=== PATIENT | male | born 1950 | race Caucasian/White ===

== ENCOUNTER 2017-07-26 14:20 | Inpatient (IN) | payer OTHER ==
--- NOTE | 2017-07-26 14:47 | PDOC ---
History of Present Illness <Tarun Duggan - Last Filed: 07/26/17 17:32> - General History Source: Patient Exam Limitations: No Limitations - History of Present Illness Initial Comments: 07/26/17 15:22 The patient is a 67 year old male, with a significant past medical history of hypertension, hyperlipidemia, and BPH, who presents to the ED sent by his PCP Dr. Carrero for evaluation of 5 day history of fever. Patient reports he presented to his PCP 5 days ago during which he had a blood and urine culture done. Patient states Dr. Kimball reported he found a UTI and infection in the blood. Patient reports associated dysuria, but denies any hematuria, frequency, or urgency. Per records the patient presents with, patients blood was positive for gram negative rods and his urine had positive leukocyte esterase and nitrates. Patient reports he was placed on antibiotics and flomax. The patient denies any abdominal pain, nausea, vomiting, diarrhea, or constipation. He denies any chills, cough, headache, or dizziness. He denies any chest pain, shortness of breath, diaphoresis, or palpitations. He denies any recent travel or sick contacts. Allergies: Penicillins Past Surgical History: None reported Social History: Non smoker. No ETOH or drug use. PCP: Dr. Kimball <Latricia Sanchez - Last Filed: 07/26/17 19:03> - General Chief Complaint: SIRS, Suspected/Possible Stated Complaint: PCP: SENT Time Seen by Provider: 07/26/17 14:39 Past History - Past Medical History HTN: Yes Other medical history: bph - Psycho/Social/Smoking Cessation Hx Anxiety: No Suicidal Ideation: No Smoking History: Never smoked Have you smoked in the past 12 months: No Information on smoking cessation initiated: No Hx Alcohol Use: No Drug/Substance Use Hx: No Substance Use Type: None <Tarun Duggan - Last Filed: 07/26/17 17:32> <Latricia Sanchez - Last Filed: 07/26/17 19:03> - Past Medical History Allergies/Adverse Reactions: Allergies Allergy/AdvReac Type Severity Reaction Status Date / Time Penicillins Allergy Verified 07/26/17 14:23 Home Medications: Ambulatory Orders Atenolol [Tenormin -] 100 mg PO DAILY 07/26/17 Levofloxacin [Levaquin] 500 mg PO DAILY 07/26/17 Tamsulosin HCl [Flomax] 0.4 mg PO DAILY 07/26/17 Review of Systems - Review of Systems Able to Perform ROS?: Yes Comments:: 07/26/17 15:22 GENERAL/CONSTITUTIONAL: Yes: +fever. No chills. No weakness. HEAD, EYES, EARS, NOSE AND THROAT: No change in vision. No ear pain or discharge. No sore throat. CARDIOVASCULAR: No chest pain or shortness of breath. RESPIRATORY: No cough, wheezing, or hemoptysis. GASTROINTESTINAL: No nausea, vomiting, diarrhea or constipation. GENITOURINARY: Yes: +dysuria. No frequency, or change in urination. MUSCULOSKELETAL: No joint or muscle swelling or pain. No neck or back pain. SKIN: No rash NEUROLOGIC: No headache, vertigo, loss of consciousness, or change in strength/ sensation. ENDOCRINE: No increased thirst. No abnormal weight change. HEMATOLOGIC/LYMPHATIC: No anemia, easy bleeding, or history of blood clots. ALLERGIC/IMMUNOLOGIC: No hives or skin allergy. <Latricia Sanchez - Last Filed: 07/26/17 19:03> *Physical Exam - Vital Signs Last Vital Signs Temp Pulse Resp BP Pulse Ox 97.9 F 65 18 121/78 100 07/26/17 14:24 07/26/17 14:24 07/26/17 14:24 07/26/17 14:24 07/26/17 14:24 <Tarun Duggan - Last Filed: 07/26/17 17:32> - Vital Signs Last Vital Signs Temp Pulse Resp BP Pulse Ox 97.9 F 65 18 121/78 100 07/26/17 14:24 07/26/17 14:24 07/26/17 14:24 07/26/17 14:24 07/26/17 14:24 - Physical Exam Comments: 07/26/17 15:22 GENERAL: Awake, alert, and fully oriented, in no acute distress HEAD: No signs of trauma EYES: PERRLA, EOMI, sclera anicteric, conjunctiva clear ENT: Auricles normal inspection, hearing grossly normal, nares patent, oropharynx clear without exudates. Moist mucosa NECK: Normal ROM, supple, no lymphadenopathy, JVD, or masses LUNGS: Breath sounds equal, clear to auscultation bilaterally. No wheezes, and no crackles HEART: Regular rate and rhythm, normal S1 and S2, no murmurs, rubs or gallops ABDOMEN: Mild suprapubic tenderness, Soft, normoactive bowel sounds. No guarding, no rebound. No masses EXTREMITIES: Normal range of motion, no edema. No clubbing or cyanosis. No cords, erythema, or tenderness NEUROLOGICAL: Cranial nerves II through XII grossly intact. Normal speech, normal gait SKIN: Warm, Dry, normal turgor, no rashes or lesions noted. <Latricia aSnchez - Last Filed: 07/26/17 19:03> ED Treatment Course - LABORATORY CBC & Chemistry Diagram: 07/26/17 15:25 07/26/17 15:25 <Tarun Duggan - Last Filed: 07/26/17 17:32> - LABORATORY CBC & Chemistry Diagram: 07/26/17 15:25 07/26/17 15:25 - RADIOLOGY Radiograph Interpretation: 07/26/17 15:47 EXAM: CXR INTERPRETED BY: Dr. Siegel REVIEWED BY: Dr. Duggan IMPRESSION: No focal infiltrate seen. No acute parenchymal disease. <Latricia Sanchez - Last Filed: 07/26/17 19:03> Medical Decision Making - Medical Decision Making 07/26/17 17:14 First call placed to Dr. Kimball at 17:14. Case discussed at this time. First call placed to Dr. Gomes at 17:28. Awaiting call back. Second call placed to Dr. Gomes at 18:42. Awaiting call back. Microblog sent to Dr. Silva(ID), who requested we consult Dr. Pathak. Microblog sent to Dr. Pathak at 18:10. No response. First call placed to Dr. Pathak at 19:00. Awaiting call back. Case discussed with Dr. Pathak at 19:02. <Latricia Sanchez - Last Filed: 07/26/17 19:03> *DC/Admit/Observation/Transfer - Discharge Dispostion Admit: Yes - Attestations Physician Attestion: 07/26/17 14:46 I, Dr. Tarun Duggan, attest that this document has been prepared under my direction and personally reviewed by me in its entirety. I further attest, that it accurately reflects all work, treatment, procedures and medical decision -making performed by me. <Tarun Duggan - Last Filed: 07/26/17 17:32> - Attestations Scribe Attestion: 07/26/17 15:21 Documentation prepared by Latricia Sanchez, acting as bio medical technician for Tarun Duggan DO. <Latricia Sanchez - Last Filed: 07/26/17 19:03> Diagnosis at time of Disposition: Bacteremia UTI (urinary tract infection) Qualifiers: Urinary tract infection type: site unspecified Hematuria presence: with hematuria Qualified Code(s): N39.0 - Urinary tract infection, site not specified Sepsis Qualifiers: Sepsis type: sepsis due to unspecified organism Qualified Code(s): A41.9 - Sepsis, unspecified organism - Discharge Dispostion Condition at time of disposition: Unchanged/Unknown - Referrals Referrals: Fito Kimball MD [Primary Care Provider] -
[2017-07-26] MEDS ORDERED: SODIUM CHLORIDE 1,000 ML IV STA (14:54)
[2017-07-26 15:43] LABS: BASOPHIL 0.3 % (0-2.0); EOSINOPHIL 3.1 % (0-4.5); MCH 34.9 pg (25.7-33.7); MCHC 34.9 g/dl (32.0-35.9); MEAN CELL VOLUME 100.1 fl (80-96); MEAN PLT VOLUME 10.3 fl (7.5-11.1); NEUTROPHILS 74.3 % (42.8-82.8); PLATELET COUNT 177 K/MM3 (134-434); RDW 12.8 % (11.9-15.9); WHITE BLOOD COUNT 9.6 K/mm3 (4.0-10.0)
[2017-07-26 15:59] LABS: VENOUS PH 7.45 (7.32-7.42)
[2017-07-26 16:00] LABS: VENOUS BLOOD GAS HCO3 33.8 meq/L (19-25)
[2017-07-26 16:09] LABS: URINE APPEARANCE CLEAR; URINE BILIRUBIN NEGATIVE (NEGATIVE); URINE BLOOD NEGATIVE (NEGATIVE); URINE COLOR YELLOW; URINE GLUCOSE (UA) NEGATIVE (NEGATIVE); URINE KETONE NEGATIVE (NEGATIVE); URINE LEUK ESTERASE TRACE (NEGATIVE); URINE NITRITE POSITIVE (NEGATIVE); URINE PROTEIN NEGATIVE (NEGATIVE)
[2017-07-26 16:11] LABS: ANION GAP 8 (8-16); BILIRUBIN,TOTAL 0.6 mg/dL (0.2-1.0); CALCIUM 8.2 mg/dL (8.5-10.1); CO2 33 mmol/L (21-32); CREATININE 0.9 mg/dL (0.7-1.3); GLUCOSE,RANDOM 138 mg/dL (74-106); INR 1.18 (0.82-1.09); SGOT/AST 16 U/L (15-37); SGPT/ALT 28 U/L (12-78); TOT PROT 6.7 g/dl (6.4-8.2)
[2017-07-26 16:14] LABS: ALK PHOS 74 U/L (45-117); CPK 46 IU/L (39-308); TROPONIN I < 0.02 ng/ml (0.00-0.05)
[2017-07-26] MEDS ORDERED: POTASSIUM CHLORIDE TABS 20 MEQ TABLET.ER (FP) PO ONE ×2 (16:30→16:33)
[2017-07-26 17:02] LABS: URINE BACTERIA MANY /hpf (NONE SEEN); URINE HYALINE CAST 11 /lpf; URINE MUCUS RARE; URINE RBC 2 /hpf (0-3); URINE WBC 36 /hpf (3-5)
[2017-07-26] MEDS ORDERED: cefTRIAXone 1 GM/50 ML BAG (PRE-DOCKED) IVPB ONE (17:15)
[2017-07-26] MEDS ORDERED: CEFTRIAXONE 50 ML ONE (17:24)
[2017-07-26] MEDS ORDERED: GENTAMICIN 80 MG PREMIXED IVPB 100 ML IVPB ONE ×2 (18:48→19:19)
[2017-07-26] MEDS ORDERED: ACETAMINOPHEN 325 MG TABLET (FP) PO PRN (18:49)
[2017-07-26] MEDS ORDERED: KCL 10 MEQ IVPB 100 ML IVPB ONE (19:20)
[2017-07-26] MEDS: MEROPENEM 1 GM in DEXTROSE 5%-WATER 100 ML IVPB SCH (19:50)
[2017-07-26] MEDS: KCL 10 MEQ IVPB 100 ML IVPB SCH ×2 (20:05→21:22)
[2017-07-26] MEDS: D5-1/2NS+20 MEQ KCL - 1,000 ML IV SCH (21:21)
[2017-07-26] MEDS: HEPARIN NA (PORCINE) 5,000 UNITS/ML 1ML VIAL SQ SCH (21:22)
[2017-07-26] MEDS ORDERED: cefTAZidime PENTAHYDRATE 1 GM/50ML PRE-DOCKED (RESTRICTED TO ID) IVPB SCH (22:00)
[2017-07-26] MEDS ORDERED: CEFTAZIDIME PENTAHYDRATE 2 GM in DEXTROSE 5%-WATER - 100 ML IVPB ONE (22:00)
[2017-07-27 01:22] VITALS: BMI 31.7
[2017-07-27 01:23] LABS: ANION GAP 11 (8-16); CALCIUM 7.9 mg/dL (8.5-10.1); CO2 27 mmol/L (21-32); CREATININE 0.8 mg/dL (0.7-1.3); GLUCOSE,RANDOM 134 mg/dL (74-106)
[2017-07-27] MEDS: MEROPENEM 1 GM in DEXTROSE 5%-WATER 100 ML IVPB SCH ×3 (02:17→18:50)
[2017-07-27 08:15] LABS: BASOPHIL 1.3 % (0-2.0); EOSINOPHIL 2.5 % (0-4.5); MCH 34.6 pg (25.7-33.7); MCHC 34.6 g/dl (32.0-35.9); MEAN CELL VOLUME 99.9 fl (80-96); MEAN PLT VOLUME 10.5 fl (7.5-11.1); PLATELET COUNT 193 K/MM3 (134-434); RDW 12.6 % (11.9-15.9); WHITE BLOOD COUNT 10.6 K/mm3 (4.0-10.0)
[2017-07-27 08:42] LABS: ALBUMIN 2.8 g/dl (3.4-5.0); ALK PHOS 76 U/L (45-117); ANION GAP 11 (8-16); BILIRUBIN,TOTAL 0.8 mg/dL (0.2-1.0); CALCIUM 8.3 mg/dL (8.5-10.1); CO2 28 mmol/L (21-32); CREATININE 0.8 mg/dL (0.7-1.3); GLUCOSE,RANDOM 133 mg/dL (74-106); MAGNESIUM 2.3 mg/dL (1.8-2.4); SGOT/AST 19 U/L (15-37); SGPT/ALT 29 U/L (12-78); TOT PROT 6.5 g/dl (6.4-8.2)
--- NOTE | 2017-07-27 09:23 | EKG ---
Test Reason : Blood Pressure : / mmHG Vent. Rate : 057 BPM Atrial Rate : 057 BPM P-R Int : 156 ms QRS Dur : 094 ms QT Int : 432 ms P-R-T Axes : 006 005 017 degrees QTc Int : 420 ms SINUS BRADYCARDIA OTHERWISE NORMAL ECG NO PREVIOUS ECGS AVAILABLE Confirmed by MD NATALIE, FIDE ([id number]) on 07/27/2017 9:22:42 AM Referred By: Confirmed By:FIDE ESTRADA MD
--- NOTE | 2017-07-27 09:32 | HP ---
Admitting History and Physical - Admission History of Present Illness: 67 year old male, with a significant past medical history of hypertension, hyperlipidemia, and BPH, who presents to the ED sent by his PCP Dr. Carrero for evaluation of 5 day history of fever. Patient reports he presented to his PCP 5 days ago during which he had a blood and urine culture done. Patient states Dr. Kimball reported he found a UTI and infection in the blood. Patient reports associated dysuria, but denies any hematuria, frequency, or urgency. Per records the patient presents with, patients blood was positive for gram negative rods and his urine had positive leukocyte esterase and nitrates. Patient reports he was placed on antibiotics and flomax. The patient denies any abdominal pain, nausea, vomiting, diarrhea, or constipation. He denies any chills, cough, headache, or dizziness. He denies any chest pain, shortness of breath, diaphoresis, or palpitations. He denies any recent travel or sick contacts. - Past Medical History Cardiovascular: Yes: HTN, Hyperlipdemia Pulmonary: No: Asthma, COPD Renal/: Yes: BPH, UTI - Smoking History Smoking history: Never smoked Have you smoked in the past 12 months: No - Alcohol/Substance Use Hx Alcohol Use: No Home Medications - Allergies Allergies/Adverse Reactions: Allergies Allergy/AdvReac Type Severity Reaction Status Date / Time Penicillins Allergy Verified 07/26/17 14:23 - Home Medications Home Medications: Ambulatory Orders Atenolol [Tenormin -] 100 mg PO DAILY 07/26/17 Levofloxacin [Levaquin] 500 mg PO DAILY 07/26/17 Tamsulosin HCl [Flomax] 0.4 mg PO DAILY 07/26/17 Review of Systems - Review of Systems Constitutional: reports: Fever Neck: reports: No Symptoms Cardiovascular: denies: Chest Pain, Palpitations Respiratory: denies: SOB Gastrointestinal: reports: No Symptoms Genitourinary: reports: Burning, Flank Pain, Frequency Physical Examination Vital Signs: Vital Signs Temperature 97.9 F 07/27/17 04:00 Pulse Rate 69 07/27/17 04:00 Respiratory Rate 20 07/27/17 04:00 Blood Pressure 120/83 07/27/17 04:00 O2 Sat by Pulse Oximetry (%) 97 07/26/17 21:00 Cardiovascular: Yes: Regular Rate and Rhythm Respiratory: Yes: Regular, CTA Bilaterally Gastrointestinal: Yes: Normal Bowel Sounds, Soft. No: Tenderness Edema: No Labs: CBC, BMP 07/27/17 06:00 07/27/17 06:00 Problem List - Problems (1) Bacteremia Assessment/Plan: IV ABX CULTURES ID CONSULT US Code(s): R78.81 - BACTEREMIA (2) UTI (urinary tract infection) Assessment/Plan: ABOVE Code(s): N39.0 - URINARY TRACT INFECTION, SITE NOT SPECIFIED Qualifiers: Urinary tract infection type: site unspecified Hematuria presence: with hematuria Qualified Code(s): N39.0 - Urinary tract infection, site not specified; R31.9 - Hematuria, unspecified (3) HTN (hypertension) Assessment/Plan: MONITOR Code(s): I10 - ESSENTIAL (PRIMARY) HYPERTENSION
[2017-07-27] MEDS ORDERED: PT OWN MED DRAWER 7, Y5N ONE ×2 (09:42→18:02)
[2017-07-27] MEDS: ATENOLOL 50 MG TABLET (FP) PO SCH (09:44)
[2017-07-27] MEDS: TAMSULOSIN HCL 0.4 MG CAP.ER.24H (FP) PO SCH (09:44)
[2017-07-27] MEDS: HEPARIN NA (PORCINE) 5,000 UNITS/ML 1ML VIAL SQ SCH ×2 (09:44→21:26)
[2017-07-27] MEDS ORDERED: POTASSIUM CHLORIDE TABS 20 MEQ TABLET.ER (FP) PO ONE (10:37)
[2017-07-27] MEDS: D5-1/2NS+20 MEQ KCL - 1,000 ML IV SCH ×2 (15:55→21:25)
--- NOTE | 2017-07-27 18:16 | PN ---
Progress Note (short form) - Note Progress Note: ID consult dictated Gram negative bacteremia/ sepsis secondary to source Pending identification of blood isolate, empiric meropenem
[2017-07-28] MEDS: MEROPENEM 1 GM in DEXTROSE 5%-WATER 100 ML IVPB SCH ×3 (01:33→17:20)
[2017-07-28 08:55] LABS: BASOPHIL 0.7 % (0-2.0); EOSINOPHIL 3.2 % (0-4.5); MCH 33.9 pg (25.7-33.7); MCHC 33.6 g/dl (32.0-35.9); MEAN CELL VOLUME 100.7 fl (80-96); MEAN PLT VOLUME 10.6 fl (7.5-11.1); NEUTROPHILS 66.2 % (42.8-82.8); PLATELET COUNT 210 K/MM3 (134-434)
[2017-07-28 09:15] LABS: ANION GAP 8 (8-16); CALCIUM 8.5 mg/dL (8.5-10.1); CO2 30 mmol/L (21-32); CREATININE 0.8 mg/dL (0.7-1.3); GLUCOSE,RANDOM 133 mg/dL (74-106)
[2017-07-28] MEDS ORDERED: PT OWN MED DRAWER 7, Y5N ONE ×2 (10:28→16:44)
[2017-07-28] MEDS: TAMSULOSIN HCL 0.4 MG CAP.ER.24H (FP) PO SCH (10:33)
[2017-07-28] MEDS: ATENOLOL 50 MG TABLET (FP) PO SCH (10:33)
[2017-07-28] MEDS: HEPARIN NA (PORCINE) 5,000 UNITS/ML 1ML VIAL SQ SCH ×2 (10:33→21:23)
--- NOTE | 2017-07-28 13:39 | PN ---
Progress Note, Physician - Current Medication List Current Medications: Active Medications Acetaminophen (Tylenol -) 650 mg PO Q4H PRN PRN Reason: FEVER OR PAIN Atenolol (Tenormin -) 100 mg PO DAILY [facility] Last Admin: 07/28/17 10:33 Dose: 100 mg Heparin Sodium (Porcine) (Heparin -) 5,000 unit SQ BID [facility] Last Admin: 07/28/17 10:33 Dose: 5,000 unit Potassium Chloride/Dextrose/Sod Cl (D5-1/2ns+20 Meq Kcl -) 1,000 mls @ 83 mls/ hr IV ASDIR [facility] Last Admin: 07/27/17 21:25 Dose: 83 mls/hr Meropenem 1 gm/ Dextrose 100 mls @ 200 mls/hr IVPB Q8H-IV [facility] PRN Reason: Protocol Last Admin: 07/28/17 10:33 Dose: 200 mls/hr Tamsulosin HCl (Flomax -) 0.4 mg PO DAILY [facility] Last Admin: 07/28/17 10:33 Dose: 0.4 mg - Objective Vital Signs: Vital Signs Temperature 98.3 F 07/28/17 05:37 Pulse Rate 60 07/28/17 09:00 Respiratory Rate 18 07/28/17 09:00 Blood Pressure 126/76 07/28/17 09:00 O2 Sat by Pulse Oximetry (%) 95 07/28/17 09:00 Cardiovascular: Yes: Regular Rate and Rhythm Respiratory: Yes: Regular, CTA Bilaterally Gastrointestinal: Yes: Normal Bowel Sounds, Soft. No: Tenderness Labs: CBC, BMP 07/28/17 08:20 07/28/17 08:20 INR, PTT INR 1.18 (0.82-1.09) H 07/26/17 15:25 Problem List - Problems (1) Bacteremia Assessment/Plan: IV ABX CULTURES ID CONSULT US Code(s): R78.81 - BACTEREMIA (2) UTI (urinary tract infection) Assessment/Plan: ABOVE Microbiology 07/26/17 15:46 Urine Culture - Preliminary Urine - Urine Clean Catch Non Lactose Fermenting Gnb 07/26/17 15:15 Blood Culture - Preliminary Blood - Peripheral Venous NO GROWTH OBTAINED AFTER 24 HOURS, INCUBATION TO CONTINUE FOR 4 DAYS. 07/26/17 15:25 Blood Culture - Preliminary Blood - Peripheral Venous NO GROWTH OBTAINED AFTER 24 HOURS, INCUBATION TO CONTINUE FOR 4 DAYS. Code(s): N39.0 - URINARY TRACT INFECTION, SITE NOT SPECIFIED Qualifiers: Urinary tract infection type: site unspecified Hematuria presence: with hematuria Qualified Code(s): N39.0 - Urinary tract infection, site not specified; R31.9 - Hematuria, unspecified (3) HTN (hypertension) Assessment/Plan: MONITOR Code(s): I10 - ESSENTIAL (PRIMARY) HYPERTENSION
[2017-07-28] MEDS: D5-1/2NS+20 MEQ KCL - 1,000 ML IV SCH ×2 (17:20→18:41)
--- NOTE | 2017-07-28 22:09 | CONS ---
DATE OF CONSULTATION: 07/28/2017 CHIEF COMPLAINT: The patient is a 67-year-old male evaluated for urinary tract infection/sepsis secondary to UTI. HISTORY: The patient had presented to his primary care physician with a 4-5 day history of fever. He also complained of dysuria. Cultures were obtained as an outpatient and he was empirically treated with Levaquin. Blood cultures are now positive for gram-negative rods. He was referred for admission with chief complaint of dysuria. No complaints of hematuria. No complaints of suprapubic or flank pain. He has had fever and chills. PAST MEDICAL HISTORY: Positive for BPH, hypertension, hyperlipidemia. ALLERGIES: PENICILLIN. MEDICATIONS: Include atenolol and Flomax. SYSTEMS REVIEW: Neurologic: No loss of consciousness, seizure activity, focal weakness. Cardiac: Negative for chest pain or palpitations. Respiratory: Negative for cough or sputum production. Gastrointestinal: Negative for vomiting or diarrhea. Genitourinary: As per HPI. SOCIAL HISTORY: Negative for tobacco and alcohol use. Lives at home with his significant other. LABORATORY DATA: White count is 10.6, platelet count 193, creatinine 0.8. Urinalysis: 36 white cells. PHYSICAL EXAMINATION: General: He is awake and alert. He is not acutely toxic appearing. Vital signs: Temperature 97.9. HEENT: He is anicteric. Heart: Heart sounds S1, S2. Lungs: Clear. Abdomen: Soft and nontender. No suprapubic or flank tenderness. Extremities: Negative for edema. IMPRESSION: 1. Sepsis due to genitourinary source. 2. PENICILLIN ALLERGY. PLAN: Pending cultures. Empiric antibiotics with meropenem. Consider the possibility of quinolone resistance and possibly multidrug-resistant gram-negative isolate. We will follow. Thank you for the kind referral. SONIYA VICKERS M.D. DAMARIS/[id number]
[2017-07-29] MEDS ORDERED: PT OWN MED DRAWER 7, Y5N ONE ×3 (01:59→17:35)
[2017-07-29] MEDS: MEROPENEM 1 GM in DEXTROSE 5%-WATER 100 ML IVPB SCH ×3 (02:04→17:39)
[2017-07-29] MEDS: HEPARIN NA (PORCINE) 5,000 UNITS/ML 1ML VIAL SQ SCH ×2 (10:02→21:29)
[2017-07-29] MEDS: TAMSULOSIN HCL 0.4 MG CAP.ER.24H (FP) PO SCH (10:02)
[2017-07-29] MEDS: ATENOLOL 50 MG TABLET (FP) PO SCH (10:05)
--- NOTE | 2017-07-29 11:00 | PN ---
Progress Note, Physician Chief Complaint: sitting in bed no distress no fever on iv abx - Current Medication List Current Medications: Active Medications Acetaminophen (Tylenol -) 650 mg PO Q4H PRN PRN Reason: FEVER OR PAIN Atenolol (Tenormin -) 100 mg PO DAILY [facility] Last Admin: 07/28/17 10:33 Dose: 100 mg Heparin Sodium (Porcine) (Heparin -) 5,000 unit SQ BID [facility] Last Admin: 07/29/17 10:02 Dose: 5,000 unit Potassium Chloride/Dextrose/Sod Cl (D5-1/2ns+20 Meq Kcl -) 1,000 mls @ 83 mls/ hr IV ASDIR [facility] Last Admin: 07/28/17 18:41 Dose: Not Given Meropenem 1 gm/ Dextrose 100 mls @ 200 mls/hr IVPB Q8H-IV [facility] PRN Reason: Protocol Last Admin: 07/29/17 10:02 Dose: 200 mls/hr Tamsulosin HCl (Flomax -) 0.4 mg PO DAILY [facility] Last Admin: 07/29/17 10:02 Dose: 0.4 mg - Objective Vital Signs: Vital Signs Temperature 98.3 F 07/29/17 06:00 Pulse Rate 59 L 07/29/17 09:56 Respiratory Rate 20 07/29/17 09:56 Blood Pressure 130/80 07/29/17 09:56 O2 Sat by Pulse Oximetry (%) 98 07/28/17 21:00 Constitutional: Yes: Calm Neck: Yes: Trachea Midline Cardiovascular: Yes: Regular Rate and Rhythm, S1, S2 Respiratory: Yes: CTA Bilaterally Gastrointestinal: Yes: Normal Bowel Sounds, Soft Extremities: Yes: Other (neelam stockings) Labs: CBC, BMP 07/28/17 08:20 07/28/17 08:20 INR, PTT INR 1.18 (0.82-1.09) H 07/26/17 15:25 Problem List - Problems (1) UTI (urinary tract infection) Assessment/Plan: iv abx Microbiology 07/26/17 15:46 Urine - Urine Clean Catch Urine Culture - Preliminary [employer] Species ID on board Code(s): N39.0 - URINARY TRACT INFECTION, SITE NOT SPECIFIED Qualifiers: Urinary tract infection type: site unspecified Hematuria presence: with hematuria Qualified Code(s): N39.0 - Urinary tract infection, site not specified; R31.9 - Hematuria, unspecified (2) HTN (hypertension) Assessment/Plan: atenolol Code(s): I10 - ESSENTIAL (PRIMARY) HYPERTENSION (3) Electrolyte abnormality Assessment/Plan: hypokalemia improved recheck Phosporous Code(s): E87.8 - OTH DISORDERS OF ELECTROLYTE AND FLUID BALANCE, NEC
[2017-07-29] MEDS ORDERED: ATENOLOL 50 MG TABLET (FP) PO SCH (11:45)
--- NOTE | 2017-07-29 14:00 | PN ---
Progress Note, Physician History of Present Illness: OOB in chair No c/o fever/ chills No dysuria - Current Medication List Current Medications: Active Medications Acetaminophen (Tylenol -) 650 mg PO Q4H PRN PRN Reason: FEVER OR PAIN Atenolol (Tenormin -) 100 mg PO DAILY [facility] Heparin Sodium (Porcine) (Heparin -) 5,000 unit SQ BID [facility] Last Admin: 07/29/17 10:02 Dose: 5,000 unit Potassium Chloride/Dextrose/Sod Cl (D5-1/2ns+20 Meq Kcl -) 1,000 mls @ 83 mls/ hr IV ASDIR [facility] Last Admin: 07/28/17 18:41 Dose: Not Given Meropenem 1 gm/ Dextrose 100 mls @ 200 mls/hr IVPB Q8H-IV [facility] PRN Reason: Protocol Last Admin: 07/29/17 10:02 Dose: 200 mls/hr Tamsulosin HCl (Flomax -) 0.4 mg PO DAILY [facility] Last Admin: 07/29/17 10:02 Dose: 0.4 mg - Objective Vital Signs: Vital Signs Temperature 98.2 F 07/29/17 11:28 Pulse Rate 56 L 07/29/17 11:28 Respiratory Rate 20 07/29/17 11:28 Blood Pressure 131/86 07/29/17 11:28 O2 Sat by Pulse Oximetry (%) 96 07/29/17 11:00 Constitutional: Yes: No Distress Eyes: Yes: Conjunctiva Clear Cardiovascular: Yes: Regular Rate and Rhythm, S1, S2 Respiratory: Yes: CTA Bilaterally Gastrointestinal: Yes: Normal Bowel Sounds, Soft. No: Tenderness Genitourinary: No: CVA Tenderness - Left, CVA Tenderness - Right Labs: CBC, BMP 07/28/17 08:20 07/28/17 08:20 INR, PTT INR 1.18 (0.82-1.09) H 07/26/17 15:25 Assessment/Plan UTI/ Sepsis secondary to UTI Urine c/s here appears to be growing an ESBL Continue meropenem
[2017-07-30] MEDS: MEROPENEM 1 GM in DEXTROSE 5%-WATER 100 ML IVPB SCH ×2 (01:28→09:33)
[2017-07-30] MEDS ORDERED: ATENOLOL 50 MG TABLET (FP) PO SCH (09:22)
--- NOTE | 2017-07-30 09:24 | DS ---
Physical Examination Vital Signs: Vital Signs Temperature 98.7 F 07/30/17 05:55 Pulse Rate 63 07/30/17 05:55 Respiratory Rate 16 07/30/17 05:55 Blood Pressure 124/74 07/30/17 05:55 O2 Sat by Pulse Oximetry (%) 96 07/29/17 22:00 Constitutional: Yes: Calm Neck: Yes: Trachea Midline Cardiovascular: Yes: Regular Rate and Rhythm, S1, S2 Respiratory: Yes: CTA Bilaterally Gastrointestinal: Yes: Normal Bowel Sounds, Soft Extremities: Yes: Other (neelam stockings) Neurological: Yes: Alert, Oriented Labs: CBC, BMP 07/28/17 08:20 07/28/17 08:20 Discharge Summary Reason For Visit: URINARY TRACT INFECTION; BACTEREMIA Current Active Problems Bacteremia (Acute) Electrolyte abnormality (Acute) HTN (hypertension) (Acute) Sepsis (Acute) UTI (urinary tract infection) (Acute) Hospital Course: Admission History of Present Illness: 67 year old male, with a significant past medical history of hypertension, hyperlipidemia, and BPH, who presents to the ED sent by his PCP Dr. Carrero for evaluation of 5 day history of fever. Patient reports he presented to his PCP 5 days ago during which he had a blood and urine culture done. Patient states Dr. Kimball reported he found a UTI and infection in the blood. Patient reports associated dysuria, but denies any hematuria, frequency, or urgency. Per records the patient presents with, patients blood was positive for gram negative rods and his urine had positive leukocyte esterase and nitrates. Patient reports he was placed on antibiotics and flomax. The patient denies any abdominal pain, nausea, vomiting, diarrhea, or constipation. He denies any chills, cough, headache, or dizziness. He denies any chest pain, shortness of breath, diaphoresis, or palpitations. He denies any recent travel or sick contacts. - Past Medical History Cardiovascular: Yes: HTN, Hyperlipdemia Pulmonary: No: Asthma, COPD Renal/: Yes: BPH, UTI - Smoking History Smoking history: Never smoked Have you smoked in the past 12 months: No - Alcohol/Substance Use Hx Alcohol Use: No seen by ID started on abx- meropenem for 5 days slightly elevated wbc count no fever no chills no nausea no cough no dysuria Microbiology 07/26/17 15:46 Urine - Urine Clean Catch Urine Culture - Final Hafnia Alvei HTN : BP stop tenormin given bradycardia and will change to losartan instead Condition: Unchanged/Unknown - Instructions Referrals: Fito Kimball MD [Primary Care Provider] - 1 Week Disposition: HOME - Home Medications Comprehensive Discharge Medication List: Ambulatory Orders Atenolol [Tenormin -] 100 mg PO DAILY 07/26/17 Levofloxacin [Levaquin] 500 mg PO DAILY 07/26/17 Tamsulosin HCl [Flomax] 0.4 mg PO DAILY 07/26/17
--- NOTE | 2017-07-30 09:28 | PN ---
Progress Note (short form) - Note Progress Note: awaiting ID to see patient to decide on abx stop tenormin as heart rate is on low side script sent for losartan to patient pharmacy will dc home if abx changed by ID Problem List - Problems (1) UTI (urinary tract infection) Code(s): N39.0 - URINARY TRACT INFECTION, SITE NOT SPECIFIED Qualifiers: Urinary tract infection type: site unspecified Hematuria presence: with hematuria Qualified Code(s): N39.0 - Urinary tract infection, site not specified; R31.9 - Hematuria, unspecified (2) HTN (hypertension) Code(s): I10 - ESSENTIAL (PRIMARY) HYPERTENSION (3) Electrolyte abnormality Code(s): E87.8 - OTH DISORDERS OF ELECTROLYTE AND FLUID BALANCE, NEC
[2017-07-30] MEDS ORDERED: PT OWN MED DRAWER 7, Y5N ONE (09:31)
[2017-07-30] MEDS: TAMSULOSIN HCL 0.4 MG CAP.ER.24H (FP) PO SCH (09:33)
[2017-07-30] MEDS: HEPARIN NA (PORCINE) 5,000 UNITS/ML 1ML VIAL SQ SCH (09:33)
[2017-07-30 14:15] VITALS: BP 149/75; PULSE 68; TEMP 98.2
--- NOTE | 2017-07-30 14:41 | PN ---
Progress Note, Physician History of Present Illness: OOB in chair no complaints No dysuria No fever/ chills - Current Medication List Current Medications: Active Medications Acetaminophen (Tylenol -) 650 mg PO Q4H PRN PRN Reason: FEVER OR PAIN Heparin Sodium (Porcine) (Heparin -) 5,000 unit SQ BID [facility] Last Admin: 07/30/17 09:33 Dose: 5,000 unit Meropenem 1 gm/ Dextrose 100 mls @ 200 mls/hr IVPB Q8H-IV [facility] PRN Reason: Protocol Last Admin: 07/30/17 09:33 Dose: 200 mls/hr Tamsulosin HCl (Flomax -) 0.4 mg PO DAILY [facility] Last Admin: 07/30/17 09:33 Dose: 0.4 mg - Objective Vital Signs: Vital Signs Temperature 98.2 F 07/30/17 14:00 Pulse Rate 68 07/30/17 14:00 Respiratory Rate 17 07/30/17 14:00 Blood Pressure 149/75 07/30/17 14:00 O2 Sat by Pulse Oximetry (%) 96 07/29/17 22:00 Constitutional: Yes: No Distress Eyes: Yes: Conjunctiva Clear Cardiovascular: Yes: Regular Rate and Rhythm, S1, S2 Respiratory: Yes: CTA Bilaterally Gastrointestinal: Yes: Normal Bowel Sounds, Soft. No: Tenderness Edema: No Labs: CBC, BMP 07/28/17 08:20 07/28/17 08:20 INR, PTT INR 1.18 (0.82-1.09) H 07/26/17 15:25 Assessment/Plan UTI/sepsis secondary to UTI PCN allergy Called outpatient lab- BC no growth (final) Urine c/s E coli (s) nitrofurantoin BC here no growth Urine c/s Hafnia sp (s) nitrofurantoin Substitute Macrobid 100mg po bid x 7d
[2017-07-30] MEDS ORDERED: NITROFURANTOIN MACROCRYSTAL 50 MG CAPSULE (FP) PO SCH (22:00)
== END 2017-07-30 15:14 | disposition home or self-care (01) | DRG 872 ==
LOC: JER 14:20 → JERBED 17:41 → J5S 20:29
PROVIDERS: ADMIT Family Medicine; ATTEND Family Medicine
DX: A41.9 Sepsis, unspecified organism (principal); N39.0 Urinary tract infection, site not specified; I10 Essential (primary) hypertension; E78.5 Hyperlipidemia, unspecified; N40.0 Benign prostatic hyperplasia without lower urinary tract symptoms; E87.6 Hypokalemia; Z88.0 Allergy status to penicillin
CPT/HCPCS: 36415; 71010-TC; 76775-TC; 76856-TC; 80048; 80053; 81003; 81015; 82803; 83605; 83735; 84100; 84484; 85025; 85610; 85730; 86850; 86900; 86901; 87040; 87086; 87186; 93005; 93010; 99285-25; J1644

== ENCOUNTER 2021-11-09 12:39 | Emergency (ER) | payer OTHER ==
[2021-11-09 12:42] VITALS: BP 130/69; BMI 32.1
[2021-11-09] MEDS ORDERED: ACETAMINOPHEN 500 MG TABLET (FP) PO ONE (14:21)
[2021-11-09 15:22] LABS: BASO % 0.1 % (0-2.0); HEMATOCRIT 36.6 % (35.4-49); HEMOGLOBIN 12.6 GM/dL (11.7-16.9); MCH 34.7 pg (25.7-33.7); MCHC 34.5 g/dl (32.0-35.9); MEAN CELL VOLUME 100.6 fl (80-96); MEAN PLT VOLUME 10.1 fl (7.5-11.1); MONO % 5.2 % (3.8-10.2); NEUT % 84.7 % (42.8-82.8); PLATELET COUNT 143 10^3/uL (134-434); RBC 3.64 M/mm3 (4.00-5.60); RDW 12.5 % (11.9-15.9)
[2021-11-09 16:01] LABS: CHLORIDE 102 mmol/L (98-107); SODIUM 139 mmol/L (136-145)
[2021-11-09 16:03] LABS: INR 1.2 (0.83-1.09); PROTHROMBIN TIME (PATIENT) 13.5 SEC (9.7-13.0)
[2021-11-09 16:04] LABS: ALBUMIN 2.8 g/dl (3.4-5.0); ANION GAP 7 MMOL/L (8-16); CALCIUM 7.7 mg/dL (8.5-10.1); CO2 30 mmol/L (21-32); GLUCOSE,RANDOM 139 mg/dL (74-106); MAGNESIUM 2.1 mg/dL (1.8-2.4)
[2021-11-09 16:06] LABS: ACTIVATED PTT 21.9 SECONDS (25.2-36.5)
[2021-11-09 16:07] LABS: CREATININE 0.8 mg/dL (0.55-1.3); SGOT/AST 28 U/L (15-37); SGPT/ALT 27 U/L (13-61)
[2021-11-09 16:09] LABS: BILIRUBIN,TOTAL 0.6 mg/dL (0.2-1); TOT PROT 6.6 g/dl (6.4-8.2)
[2021-11-09 16:10] LABS: ALK PHOS 80 U/L (45-117)
[2021-11-09 17:04] VITALS: PULSE 89; TEMP 99
[2021-11-10 13:06] LABS: SARS-CoV-2 NAA Detected (Not Detected)
== END 2021-11-09 17:04 | disposition home or self-care (01) ==
LOC: JER 12:39
DX: R10.13 Epigastric pain (principal)
CPT/HCPCS: 36415; 71045-TC-FY; 80053; 82550; 82553; 83735; 84484; 85025; 85610; 85730; 99285-25; C9803; U0003; U0005

== ENCOUNTER 2022-09-10 15:45 | Emergency (ER) | payer OTHER ==
[2022-09-10 16:42] VITALS: BP 148/85; PULSE 88; RESP 20; TEMP 98.7; BMI 31.3
[2022-09-10] MEDS ORDERED: ALBUTEROL SO4 2.5/IPRATROPIUM 0.5 INH SOL 3 ML VIAL.NEB. NEB ONE (17:53)
== END 2022-09-10 19:17 | disposition home or self-care (01) ==
LOC: JERFT 15:45
PROC: 3E0F7GC Introduction of Other Therapeutic Substance into Respiratory Tract, Via Natural or Artificial Opening (ICD-10-PCS; principal; 2022-09-10)
DX: R05.1 Acute cough (principal)
CPT/HCPCS: 71046-TC-FY; 99283-25

== ENCOUNTER 2024-05-19 04:25 | Day surgery (SDC) | payer OTHER ==
[2024-05-18 10:12] VITALS: BMI 31.3
[2024-05-19 09:21] VITALS: TEMP 97.7
[2024-05-19 13:29] VITALS: BP 135/81; PULSE 64; RESP 16
== END 2024-05-19 11:00 | disposition home or self-care (01) ==
LOC: JASU-ENDO 04:25
PROVIDERS: ATTEND Internal Medicine Gastroenterology
PROC: 0DBN8ZX Excision of Sigmoid Colon, Via Natural or Artificial Opening Endoscopic, Diagnostic (ICD-10-PCS; 2024-05-19)
PROC: 0DBC8ZX Excision of Ileocecal Valve, Via Natural or Artificial Opening Endoscopic, Diagnostic (ICD-10-PCS; principal; 2024-05-19 09:39)
DX: Z12.11 Encounter for screening for malignant neoplasm of colon (principal); D12.7 Benign neoplasm of rectosigmoid junction; D12.0 Benign neoplasm of cecum; K64.8 Other hemorrhoids; K57.30 Diverticulosis of large intestine without perforation or abscess without bleeding
CPT/HCPCS: 88305-TC